=== PATIENT | male | born 1950 | race Caucasian/White ===

== ENCOUNTER 2024-10-23 13:33 | Inpatient (IN) | payer BC, OTHER ==
[2024-10-23] MEDS: SODIUM CHLORIDE 0.9% 500 ML INFUS.BAG IV ONE (14:41)
[2024-10-23 14:46] LABS: BASO % 0.6 % (0-2.0); EOS % 1.8 % (0-4.5); HEMATOCRIT 41.5 % (35.4-49); HEMOGLOBIN 14.2 GM/dL (11.7-16.9); LYMPH % 21.4 % (8-40); MCH 33.3 pg (25.7-33.7); MCHC 34.2 g/dl (32.0-35.9); MEAN CELL VOLUME 97.3 fl (80-96); MEAN PLT VOLUME 6.6 fl (7.5-11.1); MONO % 6.5 % (3.8-10.2); NEUT % 69.7 % (42.8-82.8); PLATELET COUNT 270 10^3/uL (134-434); RBC 4.26 M/mm3 (4.00-5.60); RDW 13.5 % (11.9-15.9); WHITE BLOOD COUNT 8.7 K/mm3 (4.0-10.0)
[2024-10-23 14:53] VITALS: BMI 21.8
[2024-10-23 14:53] LABS: INR 1.09 (0.83-1.09); PROTHROMBIN TIME (PATIENT) 11.9 SEC (9.7-13.0)
[2024-10-23 14:56] LABS: ACTIVATED PTT 26.3 SECONDS (25.2-36.5)
[2024-10-23 15:13] LABS: POTASSIUM 4.7 mmol/L (3.5-5.1)
[2024-10-23 15:15] LABS: CALCIUM 9.3 mg/dL (8.5-10.1)
[2024-10-23 15:16] LABS: ALBUMIN 3.9 g/dl (3.4-5.0)
[2024-10-23 15:19] LABS: CREATININE 1.1 mg/dL (0.55-1.3)
[2024-10-23 15:21] LABS: BILIRUBIN,TOTAL 0.9 mg/dL (0.2-1); TOT PROT 7.8 g/dl (6.4-8.2)
[2024-10-23] MEDS ORDERED: ASPIRIN 325 MG ENTERIC COATED TABLET (FP) PO SCH (16:15)
[2024-10-23] MEDS: ASPIRIN 81 MG CHEWABLE TABLETS PO ONE (16:25)
[2024-10-23] MEDS ORDERED: ASPIRIN 81 MG CHEWABLE TABLETS ONE (17:37)
[2024-10-23] MEDS ORDERED: DOCUSATE SODIUM 100 MG CAPSULE (FP) PO PRN (21:23)
[2024-10-23] MEDS: INSULIN ASPART SLIDING SCALE (NOVOLOG) 1 VIAL SQ SCH (23:19)
[2024-10-24 07:51] LABS: BASO % 0.4 % (0-2.0); HEMATOCRIT 38.5 % (35.4-49); HEMOGLOBIN 13.2 GM/dL (11.7-16.9); MCH 33.3 pg (25.7-33.7); MCHC 34.4 g/dl (32.0-35.9); MEAN CELL VOLUME 96.9 fl (80-96); MEAN PLT VOLUME 7.1 fl (7.5-11.1); MONO % 6.8 % (3.8-10.2); NEUT % 65.8 % (42.8-82.8); PLATELET COUNT 269 10^3/uL (134-434); RBC 3.98 M/mm3 (4.00-5.60); RDW 13.2 % (11.9-15.9); WHITE BLOOD COUNT 7.9 K/mm3 (4.0-10.0)
[2024-10-24 08:07] LABS: POTASSIUM 3.8 mmol/L (3.5-5.1)
[2024-10-24 08:14] LABS: BLOOD UREA NITROGEN 11.4 mg/dL (7-18)
[2024-10-24 08:15] LABS: CALCIUM 8.5 mg/dL (8.5-10.1)
[2024-10-24 08:18] LABS: CREATININE 0.9 mg/dL (0.55-1.3); PHOSPHOROUS 2.9 mg/dL (2.5-4.9)
[2024-10-24] MEDS: CLOPIDOGREL BISULFATE 75 MG TABLET (FP) PO SCH (11:01)
[2024-10-24] MEDS: ASPIRIN COATED 81 MG TABLET.EC PO SCH (11:01)
[2024-10-24] MEDS: ATORVASTATIN CA 40 MG TABLET (FP) PO ONE (13:56)
[2024-10-24] MEDS: ATORVASTATIN CA 80 MG TABLET (FP) PO SCH (21:37)
[2024-10-25 10:49] LABS: CHOLESTEROL 171 mg/dL (50-200)
[2024-10-25 10:50] LABS: LDL CHOLESTEROL (ONLY SJRH) 126 mg/dL (5-100)
[2024-10-25 10:52] LABS: HDL CHOLESTEROL 27 mg/dL (40-60)
[2024-10-25] MEDS ORDERED: INSULIN ASPART SLIDING SCALE (NOVOLOG) 1 VIAL SQ ONE (21:56)
[2024-10-26] MEDS: CYANOCOBALAMIN (VITAMIN B-12) 1000 MCG/1 ML VIAL IM SCH (10:46)
[2024-10-26 19:20] LABS: PHOSPHOROUS 3.1 mg/dL (2.5-4.9)
[2024-10-27] MEDS: MESALAMINE 1.2 GM PO SCH (07:53)
[2024-10-27 08:26] LABS: BASO % 0.6 % (0-2.0); EOS % 6.5 % (0-4.5); HEMATOCRIT 40.5 % (35.4-49); HEMOGLOBIN 13.8 GM/dL (11.7-16.9); MCH 33.1 pg (25.7-33.7); MCHC 34.1 g/dl (32.0-35.9); MEAN PLT VOLUME 7.1 fl (7.5-11.1); MONO % 7.6 % (3.8-10.2); NEUT % 62.3 % (42.8-82.8); PLATELET COUNT 301 10^3/uL (134-434); RBC 4.17 M/mm3 (4.00-5.60); WHITE BLOOD COUNT 6.5 K/mm3 (4.0-10.0)
[2024-10-27 08:43] LABS: POTASSIUM 3.6 mmol/L (3.5-5.1)
[2024-10-27 08:47] LABS: CALCIUM 8.9 mg/dL (8.5-10.1)
[2024-10-27 08:48] LABS: ALBUMIN 3.8 g/dl (3.4-5.0); BLOOD UREA NITROGEN 12.8 mg/dL (7-18)
[2024-10-27 08:52] LABS: TOT PROT 7.4 g/dl (6.4-8.2)
[2024-10-27] MEDS: CYANOCOBALAMIN (VITAMIN B-12) 1000 MCG/1 ML VIAL IM SCH (11:02)
[2024-10-27] MEDS: ACETAMINOPHEN 325 MG TABLET (FP) PO PRN (11:03)
[2024-10-28 08:35] LABS: ALBUMIN 3.6 g/dl (3.4-5.0); BLOOD UREA NITROGEN 10.3 mg/dL (7-18); CALCIUM 8.8 mg/dL (8.5-10.1); MAGNESIUM 2.3 mg/dL (1.8-2.4)
[2024-10-28 08:39] LABS: PHOSPHOROUS 3.3 mg/dL (2.5-4.9)
[2024-10-28 08:40] LABS: BILIRUBIN,TOTAL 0.9 mg/dL (0.2-1)
[2024-10-28 08:41] LABS: TOT PROT 7.1 g/dl (6.4-8.2)
[2024-10-28] MEDS: MESALAMINE 800 MG TABLET.DR PO SCH (11:30)
[2024-10-29 15:00] VITALS: RESP 18; TEMP 97.5
[2024-10-29 15:03] VITALS: BP 167/81; PULSE 88
== END 2024-10-29 16:57 | disposition home or self-care (01) | DRG 65 ==
LOC: JER 13:33 → JERBED 17:26 → J4S 22:59 → OBSVTOIN 10-24 14:42
PROVIDERS: ADMIT Internal Medicine; ATTEND Internal Medicine
DX: I63.89 Other cerebral infarction (principal); K51.90 Ulcerative colitis, unspecified, without complications; R29.700 NIHSS score 0; I10 Essential (primary) hypertension; E11.9 Type 2 diabetes mellitus without complications; G51.0 Bell's palsy; E53.8 Deficiency of other specified B group vitamins; E78.5 Hyperlipidemia, unspecified; I69.920 Aphasia following unspecified cerebrovascular disease; H54.61 Unqualified visual loss, right eye, normal vision left eye
CPT/HCPCS: 0241U-QW; 36415; 70450-TC; 70551-TC; 71045-TC-FY; 80048; 80053; 80061; 82607; 82746; 82962; 83036; 83735; 84100; 84484; 85025; 85610; 85730; 93005; 93010; 93306-TC; 93880-TC; 97116-GP; 97162-GP; 99285-25; G0378